=== PATIENT | female | born 2000 | race Caucasian/White ===

== ENCOUNTER 2024-09-13 18:00 | Outpatient (REF) | payer MEDICAID, SELFPAY ==
[2024-09-14 05:18] LABS: CT PCR NOT DETECTED (Not Detect.); NG PCR NOT DETECTED (Not Detect.)
== END 2024-09-13 18:01 | disposition home or self-care (01) ==
LOC: HO.HHCLNP 18:00
PROVIDERS: Visit Provider Family Medicine
DX: Z11.3 Encounter for screening for infections with a predominantly sexual mode of transmission (principal)
CPT/HCPCS: 87491; 87591

== ENCOUNTER 2024-09-24 13:32 | Outpatient (REF) | payer MEDICAID, SELFPAY ==
[2024-09-24 14:09] LABS: MANUAL DIFF FLAG NO
[2024-09-24 14:31] LABS: Basophils Absolute Auto 0.1 X10*3/uL (0.0-0.2); Basophils Percent Auto 0.7 % (0-2); Eosinophils Percent Auto 0.2 % (0-4); Hematocrit 43.4 % (37.0-47.0); Hemoglobin 15.1 g/dl (12.0-16.0); Imm Gran Abs Auto 0.02 X10*3/uL (0.00-0.03); Imm Gran Pct Auto 0.2 % (0.0-0.4); Lymphocytes Absolute Auto 1.7 X10*3/uL (1.2-4.9); Lymphocytes Percent Auto 17.4 % (20-40); Mean Corpuscular HGB Conc 34.8 g/dl (31.0-35.0); Mean Corpuscular Hemoglobin 29.7 pg (27.0-33.0); Mean Corpuscular Volume 85.3 fL (80.0-98.0); Mean Platelet Volume 11.1 fL (9.4-12.3); Monocytes Absolute Auto 0.3 X10*3/uL (0.1-1.2); Monocytes Percent Auto 2.7 % (2-11); Neutrophils Absolute Auto 7.9 x10*3/uL (2.0-8.3); Neutrophils Percent Auto 78.8 % (45-73); Platelet Count 245 X10*3/uL (160-400); Red Blood Count 5.09 X10*6/uL (4.20-5.50); Red Cell Distribution Width 12.9 % (11.0-16.0)
[2024-09-24 14:40] LABS: Cholesterol 189 mg/dL (<200); HDL Cholesterol 77 mg/dL (>40); LDL Cholesterol Calculated 102 mg/dL (<100); Triglycerides 54 mg/dL (<150)
[2024-09-25 04:15] LABS: HIV AB/AG Nonreactive (Nonreactive); HIV Num 1 0.06 S/CO (0.00-0.99); ~HepC Num1 0.06 S/CO (0.00-0.79); ~Hepatitis C Antibody Nonreactive (Nonreactive)
[2024-09-25 09:24] LABS: Rubella IgG Antibody 2.59 Index; Rubeola IgG (Measles) >300.00 AU/mL
[2024-09-25 13:03] LABS: Varicella IgG Antibody 1.02 S/CO
[2024-09-27 03:54] LABS: TS Negative Control Passed; TS Panel A 0; TS Panel B 0; TS Positive Control Passed; TSpotTB Negative (Negative)
== END 2024-09-24 13:33 | disposition home or self-care (01) ==
LOC: HO.CHCLDS 13:32
PROVIDERS: Visit Provider Family Medicine
DX: Z11.1 Encounter for screening for respiratory tuberculosis (principal); Z13.9 Encounter for screening, unspecified; Z28.39 Other underimmunization status
CPT/HCPCS: 36415; 80061; 85025; 86481; 86735; 86762; 86765; 86787; 86803; 87389

== ENCOUNTER 2024-10-17 13:35 | Outpatient (REF) | payer MEDICAID, SELFPAY ==
[2024-10-18 10:54] LABS: HPV 16,18/45 See PAP report
[2024-10-28 01:19] LABS: C. trachomatis RNA TMA Not Detected (Not Detected); N. gonorrhoeae RNA TMA Not Detected (Not Detected); Trichomonas (NAAT) Not Detected (Not Detected)
== END 2024-10-17 13:36 | disposition home or self-care (01) ==
LOC: HO.LNP 13:35
PROVIDERS: Visit Provider Family Medicine
DX: Z12.4 Encounter for screening for malignant neoplasm of cervix (principal); N87.0 Mild cervical dysplasia; R87.810 Cervical high risk human papillomavirus (HPV) DNA test positive
CPT/HCPCS: 87491; 87591; 87624; 87661; 88175

== ENCOUNTER 2024-10-17 15:57 | Outpatient (REF) | payer MEDICAID, SELFPAY | END 2024-10-17 15:58 | disposition home or self-care (01) | LOC: HO.CHCLDS 15:57 | PROVIDERS: Visit Provider Family Medicine | DX: Z00.00 Encounter for general adult medical examination without abnormal findings (principal); Z11.59 Encounter for screening for other viral diseases | CPT/HCPCS: 86317 ==

== ENCOUNTER 2025-04-02 12:18 | Outpatient (AMB) | payer MEDICAID, SELFPAY ==
--- NOTE | 2025-04-02 12:21 | A.OFFVIS_ITS ---
Vital Signs 04/02/25 12:33 Height 5 ft 2 in Weight 122 lb BMI 22.3 BP 114/72 Intake Visit Reasons: abnormal pap/ ? colpo Tank Furnace Operator: Tank Furnace Operator Present (Elisha) Accompanied by: Mother Allergies No Known Allergies Allergy (Verified 04/02/25 12:31) Is last menstrual period known: Yes Last menstrual period: 03/01/25 Post menopausal: No Patient : No HPI Comments Details: Presenting referred from PCP regarding abnormal Pap smear which showed the following: Satisfactory for evaluation, with mildly dysplastic squamous cells / HPV cytopathic change (TOVA 1; low grade squamous intraepithelial lesion). Endocervical epithelium present. 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 Female Reproductive History Menstrual Age of Menarche: 13 Duration of menses: 3-5 days Date of last menstrual period: 03/01/25 control method: none Total pregnancies: 1 Ab induced: 1 Date of last pap smear: 11/06/24 History of abnormal pap smear: Yes Review of Systems Const All systems reviewed & are unremarkable except as noted in HPI and below Reports as per HPI and Reports no additional complaints GI Reports no additional complaints Reports no additional complaints Physical Exam Vital Signs: Last Vital Signs BP 114/72 04/02/25 12:33 BMI result Body Mass Index 22.3 General: Yes no CVA tenderness External Female Exam: normal external appearance and normal appearance of the urethra Speculum Exam - Vagina: normal appearance of the vagina, normal palpation, no lesions and no masses Speculum Exam - Cervix: normal appearance of the cervix, normal palpation, no lesions, no masses and nontender Bimanual exam- vagina & uterus: normal bimanual exam, normal palpation, uterine size normal, normal palpation, uterine shape normal, No Cervical tenderness present and non-tender Bimanual Exam- Adnexa, other: normal adnexae Back/Spine/Pelvis Back: no CVA tenderness Assessment & Plan Assessment & Plan (1) LGSIL on Pap smear of cervix: Comment: HPV high-risk positive, HPV 16/18 negative In the category of 21-24 years of age Code(s): R87.612 - Low grade squamous intraepithelial lesion on cytologic smear of cervix (LGSIL) Category: Medical Plan: Discussed with the patient the result of her abnormal pap, its significance, risk of progression, persistence, and regression. the false positive/negative rate of a Pap smear as a screening test in detecting cervical cancer and the ASCCP guidelines in managing LSIL HPV positive in woman ages 21-24 years, specifically to repeat cytology in 12 months, if negative/ASCUS or LSIL, will repeat cytology in another 12 months if 2 consecutive cytologies are negative , will co back to routine screening, if not or in case of asc-H, AGC, HSIL will proceed to colposcopy. Instructions given the patient to schedule Pap smear in 12 months. All questions answered, the patient verbalized understanding Coding Level of Care Code New Pt Level 3 (41640) Diagnoses LGSIL on Pap smear of cervix R87.612
--- OUTSIDE RECORDS SUMMARY | 2025-04-02 12:32 | XMS_ITS | Clinical Summary ---
Author Organization [facility] Address [address] [place] [address] Phone Care Team Providers Care Investment Broker Name Role Phone Unavailable Primary Care Provider Unavailabl e Allergies No known active allergies Medications No known medications Active Problems Problem Noted Date Diagnosed Date Unplanned 09/16/2023 Overview (09/16/2023): 01/2023 Myopia, bilateral 02/15/2022 Overview (02/20/2022): L 20/70 R 20/40- refer to optha stressed the importance especially with driving Assessment & Plan (02/20/2022 2:36 PM EDT): L 20/70 R 20/40- refer to optha stressed the importance especially with driving 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 Multiple benign nevi 02/15/2022 Overview (02/15/2022): 02/15/22 request referral to derm; really wants nevi to L antecub removed Resolved Problems Problem Noted Date Diagnosed Date Resolved Date Acquired unequal leg length 08/03/2013 02/20/2022 Immunizations Immunization Administration Dates Next Due DTaP 5 07/21/2006, 4,2002, 002,2002 HPV Vaccine 9 Valent 08/11/2018,11/16/2016 Hep A, ped/adol 10/01/2015,08/07/2014 Hep B, ped/adol 03/28/2003,2002,2002 Hib (PRP-T) 09/19/2003, 3,2002, 002 IPV 07/21/2006, 4,03/28/2003, 002,2002 MMR 07/21/2006,07/04/2003 Meningococcal B Trumenba 10/01/2020,08/22/2019 Meningococcal Conj (Menactra) MCV4P 08/11/2018,0 08/03/2013 Pneumococcal Conjugate 09/19/2003,2002,2002, 002 Tdap 08/03/2013 Varicella 07/21/2007,07/04/2003 Family History Medical History Relation Name Comments No Known Problems Father Dakota Hypertension Maternal Grandfather No Known Problems Maternal Grandmother No Known Problems Mother Bhumi Hypertension Paternal Grandmother Relation Name Status Comments Brother Simon Alive Brother: Alive and well Father Dakota Alive Maternal Grandfather Alive Maternal Grandmother Alive Mother Bhumi Alive Other Family history of Asthma, Family history of Elevated cholesterol, Family history of Deafness, Family history of Obesity, Family history of Diabetes mellitus Paternal Grandfather Alive Paternal Grandmother Alive Sister Deanna Alive Sister: Alive a nd well Social History Tobacco Use Types Packs/Day Years Used Date Smoking Tobacco: Never Comments:Never smoker Alcohol Use Standard Drinks/Week Comments Yes 0 (1 standard drink = 0.6 oz pur e alcohol) Hunger/Food Answer Date Recorded In the last 12 months, did y ou or your family ever eat less than you felt you should because there wasn't enough money for food? No 02/15/2022 Stable Housing Answer Date Recorded Are you worried that in the next 2 months you may not have stable housing? No 02/15/2022 Transportation Concerns Answer Date Rec orded In the last 12 months, have you or your family ever had to go without healthcare because you didn't have a way to get there? No 02/15/2022 Hazards in Home Answer Date Recorded Think about the place you li ve. Do you have problems with any of the following? Pests (mice or roaches), mold, no/not working smoke detectors, water leaks, no window guards. No 2021 Financing Utilities Answer Date Recorde d In the last 12 months, has t he electric, gas, oil, or water company threatened to shut off your services in your home? No 02/15/2022 Safety at Home Answer Date Recorded Are you or your family worried about feeling saf e in your home? No 02/15/2022 Outside Support Answer Date Recorded Do you feel that you need mo re support from other people or programs to help you care for yourself or your family? No 02/15/2022 Understanding Health Concerns Answer Da te Recorded Do you need help understandi ng your or your child's healthcare needs (diagnosis, medications, plan, etc.)? No 02/15/2022 Financing Health Concerns Answer Date R ecorded In the last 12 months, was t here a time when your child needed to see a doctor or get medications or supplies but could not because of cost? No 02/15/2022 Missing School or Work Answer Date Tristian rded Did you or your child miss s chool or work because of a health problem that could have been avoided? No 02/15/2022 Comments No Sex and Gender Information Value Date Recorded Sex Assigned at Not on file Legal Sex Female 4:56 PM EDT Gender Identity Female 09/16/2023 1:13 PM EST Sexual Orientation Not on file Last Filed Vital Signs Vital Sign Reading Time Taken Comments Blood Pressure 100/72 02/15/2022 9:23 AM EDT Pulse 80 05/12/2021 2:35 PM EDT Temperature 37.2 ??C (99 ??F) 01/10/2023 9:28 AM EST Respiratory Rate - - Oxygen Saturation 100% 11/15/2022 4:45 PM EST Inhaled Oxygen Concentration - - Weight 47.2 kg (104 lb) 01/10/2023 9:28 AM EST Height 158.8 cm (5' 2.5 ) 02/15/2022 9:23 AM EDT Body Mass Index 18.72 02/15/2022 9:23 AM EDT Plan of Treatment Health Maintenance Due Date Last Done Comments DTaP,Tdap,and Td Vaccines (7 - Td or Tdap) 08/03/2023 08/03/2013, 07/21/2006, 12/26/2003, Additional history exists Influenza Vaccines (#1) 2024 COVID-19 Vaccine ( - 2023-2 5 season) 2024 Hepatitis B Vaccines Completed 03/28/2003, 2002, 2002 HIB Vaccines Completed 09/19/2003, 12/09, 2002, Additional history exists Pneumococcal Vaccine Completed 09/19/2003, 2002, 2002, Additional history exists IPV Vaccines Completed 07/21/2006, 12/08, 03/28/2003, Additional history exists MMR Vaccines Completed 07/21/2006, 07/04/2003 Varicella Vaccines Completed 07/21/2007, 07/04/2003 Hepatitis A Vaccines Completed 10/01/2015, 08/07/20 14 HPV Vaccines Completed 08/11/2018, 11/16/2016 Meningococcal Vaccine Completed 08/11/2018, 013 Men B Vaccine Completed 10/01/2020, 08/22/2019 Procedures * Due to [place] [employer] law, this organization might not be sharing sensitive test results. Procedure Name Priority Date/Time Associated Diagnosis Comments CHLAMYDIA AND GONORRHEA, AMPLIFIED Routine 02/15/2022 10:11 AM EDT Special screening examination for chlamydial disease from Last 3 Months or Most Recently Relevant to Health Maintenance Results * Due to [place] [employer] law, this organization might not be sharing sensitive test results. * Chlamydia and Gonorrhoea, Amplified (02/15/2022 10:11 AM EDT) Chlamydia Trachomatis, DNA Probe NEGATIVE (NEG) [facility] Comment: No Chlamydia Trachomatis RNA detected in this patient's sample ? (REFERENCE RANGE/NORMAL VALUE: NOT DETECTED) ? Note: This test uses electrician third- mediated amplification method to detect rRNA from C. Trachomatis URINE GC AMP PROBE NEGATIVE (NEG) [facility] Comment: No Neisseria Gonorrhoeae RNA detected in this patient's sample ? (REFERENCE RANGE/NORMAL VALUE: NOT DETECTED) ? NOTE: This test uses electrician third-mediated amplification method to detect rRNA from N.Gonorrhoeae. A negative result does not preclude infection. In the case of a negative urine result, testing of an endocervical(female) or urethral (male) specimen is recommended if there is high clinical suspicion of infection. Due to very high sensitivity of Nucleic Acid Amplification Test, false positive results may occur. Therefore, specimen handling is extremely important. In patients in whom the disease is unlikely, additional sample for testing should be considered after an initial positive result. The performance characteristics of this test have not been evaluated in children. The Aptima Combo2 assay is not intended for the evaluation of suspected sexual abuse or for other medico-legal indications. The ordering provider should assess if the patient had consensual sex without risk of sexual abuse. Consult the [facility] if needed. Contact phone number . Therapeutic failure or success cannot be determined with the Aptima Combo2 assay since nucleic acid may persist following appropriate antimicrobial therapy. The Centers for Disease Control and Prevention (CDC) recommends confirmatory retesting using culture or a different nucleic acid amplification test when positive results occur, if indicated. Testing performed or reported by [facility], a Service of [facility], [facility] [place] [address] Cornelio Hubre MD, Tattoo Identifier [facility]# [id number] Urine (Urine) 02/15/2022 10: 11 AM EDT 02/16/2022 12:42 AM EDT us Katherine Paul NP LAB MICROBIOLOGY - GENERAL ORDER PETER Final Result [facility] from Last 3 Months or Most Recently Relevant to Health Maintenance
[2025-04-02 12:33] VITALS: BP 114/72; BMI 22.3
== END 2025-04-02 13:12 | disposition home or self-care (01) ==
LOC: HO.HWS 12:19
PROVIDERS: PCP Nurse Practitioner Pediatrics; Visit Provider Obstetrics & Gynecology
DX: R87.612 Low grade squamous intraepithelial lesion on cytologic smear of cervix (LGSIL) (principal)
CPT/HCPCS: 99203

== ENCOUNTER → 2025-04-02 12:18 | Outpatient (BNVA) | payer MEDICAID, SELFPAY | PROVIDERS: PCP Nurse Practitioner Pediatrics; Visit Provider Obstetrics & Gynecology | DX: R87.612 Low grade squamous intraepithelial lesion on cytologic smear of cervix (LGSIL) (principal) | CPT/HCPCS: 99202 ==

== ENCOUNTER 2025-04-04 09:09 | Outpatient (REF) | payer MEDICAID, SELFPAY ==
--- OUTSIDE RECORDS SUMMARY | 2025-04-04 09:30 | XMS_ITS | Clinical Summary ---
Author Organization [facility] Address [address] [place] [address] Phone Care Team Providers Care Sawdust Drier Name Role Phone Unavailable Primary Care Provider [...] Completed 10/01/2020, 08/22/2019 Procedures * Due to [place] [employer] law, this organization might not be sharing sensitive test results. Procedure Name Priority Date/Time Associated Diagnosis Comments CHLAMYDIA AND GONORRHEA, AMPLIFIED Routine 02/15/2022 10:11 AM EDT Special screening examination for chlamydial disease from Last 3 Months or Most Recently Relevant to Health Maintenance Results * Due to [place] [employer] law, this organization might not be sharing sensitive test results. * Chlamydia and Gonorrhoea, Amplified (02/15/2022 10:11 AM EDT) Chlamydia Trachomatis, DNA Probe NEGATIVE (NEG) [facility] Comment: No Chlamydia Trachomatis RNA detected in this patient's sample ? (REFERENCE RANGE/NORMAL VALUE: NOT DETECTED) ? Note: This test uses aircraft engine cylinder mechanic- mediated amplification method to detect rRNA from C. Trachomatis URINE GC AMP PROBE NEGATIVE (NEG) [facility] Comment: No Neisseria Gonorrhoeae RNA detected in this patient's sample ? (REFERENCE RANGE/NORMAL VALUE: NOT DETECTED) ? NOTE: This test uses aircraft engine cylinder mechanic-mediated amplification method to detect rRNA from N.Gonorrhoeae. [...] without risk of sexual abuse. Consult the [facility] if needed. Contact phone number . Therapeutic failure or success cannot be determined with the Aptima Combo2 assay since nucleic acid may persist following appropriate antimicrobial therapy. The Centers for Disease Control and Prevention (CDC) recommends confirmatory retesting using culture or a different nucleic acid amplification test when positive results occur, if indicated. Testing performed or reported by [facility], a Service of [facility], [facility] [place] [address] Cornelio Huber MD, Car Lubricator [facility]# [id number] Urine (Urine) 02/15/2022 10: 11 AM EDT 02/16/2022 12:42 AM EDT us Katherine Paul NP LAB MICROBIOLOGY - GENERAL ORDER PETER Final Result [facility] from Last 3 Months or Most Recently Relevant to Health Maintenance
[2025-04-04 11:25] LABS: HBS Num1 0.05 mIU/mL (0-7.99); HBc Num1 0.07 S/CO (0.00-0.79); HBsAGNum1 0.26 S/CO (0.00-0.99); Hepatitis B Core Antibody Nonreactive (Nonreactive); Hepatitis B Surface Antigen Negative (Negative); ~Hepatitis B Surface Antibody NONREACTIVE (Nonreactive)
== END 2025-04-04 09:10 | disposition home or self-care (01) ==
LOC: HO.CHCLDS 09:09
PROVIDERS: Visit Provider Family Medicine
DX: Z78.9 Other specified health status (principal)
CPT/HCPCS: 36415; 86704; 86706; 87340

== ENCOUNTER 2025-10-25 11:35 | Outpatient (REF) | payer MEDICAID, SELFPAY ==
--- OUTSIDE RECORDS SUMMARY | 2025-10-25 13:43 | XMS_ITS | Encounter Summary ---
Author Organization [employer] Address [address] [facility] [address] [place] [address] Care Team Providers Care Agricultural Equipment Test Engineer Name Role Phone Bhumi Gamboa MD Primary Care Provider [phone] Encounter Details Date Type Department Care Team ([facility] st Contact Info) Description 12/26/2024 Orders Only [facility] [address] [place] [address] Provider, MD Ashly Social History Tobacco Use Types Packs/Day Years Used Date Smoking Tobacco: Never Passive Smoke Exposure: Current Smokeless Tobacco: Never Alcohol Use Standard Drinks/Week Comments Yes 0 (1 standard drink = 0.6 oz pur e alcohol) Social, irregular Depression Answer Date Recorded Patient Health Questionnaire-9 Score 0 09/20/2024 Patient Health Questionnaire-9 Score 0 09/20/2024 Last PHQ-9: Questionnaire Data Not on file 1 11/20/2023 Housing Stability Answer Date Recorded What is your housing situation today? I have josue torres 09/06/[address] you li ve. Do you have problems with any of the following? None of the above 09/06/2024 Food Insecurity Answer Date Recorded Within the past 12 months, y ou worried that your food would run out before you got money to buy more: Never True 09/06/2024 Within the past 12 months,th e food you bought just didn't last and you didn't have enough money to get more: Never True Transportation Answer Date Recorded In the past 12 months, has l ack of transportation kept you from medical appts, meetings, work or from getting things needed for daily living? No 09/06/2024 Utilities Answer Date Recorded In the past 12 months, has t he [employer], gas, oil or water company threatened to shut off services in your home? No 09/06/2024 Depression Answer Date Recorded Patient Health Questionnaire-2 Score 0 09/20/2024 Internet Access Answer Date Recorded Internet Access Q1 Yes 09/06/2024 Internet Access Q2 Not on file 09/06/2024 Comments No Sex and Gender Information Value Date Recorded Sex Assigned at Female 06/08/2024 10:56 AM EDT Legal Sex Female 10:53 AM EDT Gender Identity Female 06/08/2024 10:56 AM EDT Sexual Orientation Straight 09/11/2024 11 :44 AM EST documented as of this encounter Plan of Treatment Not on file documented as of this encounter Procedures Procedure Name Priority Date/Time Associated Diagnosis Comments DERMATOPATHOLOGY REPORT Routine 12/24/19 11:18 AM EST documented in this encounter Results * Dermatopathology Report (12/24/2024 11:18 AM EST) us Historical Provider LAB BLOOD ORDERABLES Ginger l Result documented in this encounter Visit Diagnoses Not on filedocumented in this encounter Additional Health Concerns Assessment Noted Time PHQ-9 Depression Total Score: 0 09/20/20 3:38 PM EST documented as of this encounter Care Teams Agricultural Equipment Test Engineer Relationship Specialty Start Date End Date Bhumi Gamboa MD [address] [place] [address] PCP - General Family Medicine 09/13/24 documented as of this encounter
--- OUTSIDE RECORDS SUMMARY | 2025-10-25 13:43 | XMS_ITS | Encounter Summary ---
Author Organization [facility] Address [address] [place] [phone] Phone Care Team Providers Care Co Founder And Chairman Name Role Phone Maggie Smith MD Primary Care Provider Encounter Details Date Type Department Care Team ([facility] Contact Info) Description 06/23/2017 Conversion Encounter [facility] [address] [place] [address] Social History Tobacco Use Types Packs/Day Years Used Date Smoking Tobacco: Never Comments:Never smoker Comments Unknown Sex and Gender Information Value Date Recorded Sex Assigned at Not on file Legal Sex Female 4:56 PM EDT Gender Identity Female 09/16/2023 1:13 PM EST Sexual Orientation Not on file documented as of this encounter Plan of Treatment Not on file documented as of this encounter Visit Diagnoses Not on filedocumented in this encounter Care Teams Co Founder And Chairman Relationship Specialty Start Date End Date Maggie Smith MD [address] [place] [address] PCP - General Pediatrics 04/28/23 10/19/23 documented as of this encounter
--- OUTSIDE RECORDS SUMMARY | 2025-10-25 13:43 | XMS_ITS | Encounter Summary ---
Author Organization [facility] Address [address] [place] [address] Phone Care Team Providers Care Health And Safety Inspector Name Role Phone Maggie Smith MD Primary Care Provider Encounter Details Date Type Department Care Team (Late st Contact Info) Description 06/18/2010 Documentation [facility] [place] Family Medicine [address] [place] [address] Family Medicine, Physician [address] [place], [place] [id number] Social History Tobacco Use Types Packs/Day Years Used Date Smoking Tobacco: Never Assessed Comments Unknown Sex and Gender Information Value Date Recorded Sex Assigned at Not on file Legal Sex Female 4:56 PM EDT Gender Identity Female 09/16/2023 1:13 PM EST Sexual Orientation Not on file documented as of this encounter Plan of Treatment Not on file documented as of this encounter Visit Diagnoses Not on filedocumented in this encounter Care Teams Health And Safety Inspector Relationship Specialty Start Date End Date Maggie Smith MD [address] [place] [id number] PCP - General Pediatrics 04/28/23 10/19/23 documented as of this encounter
--- OUTSIDE RECORDS SUMMARY | 2025-10-25 13:43 | XMS_ITS | Encounter Summary ---
Author Organization [facility] Address [address] [place] [address] Phone Care Team Providers Care Body Mechanic Apprentice Name Role Phone Maggie Smith MD Primary Care Provider [phone] Encounter Details Date Type Department Care Team (Late st Contact Info) Description 07/11/2014 Documentation [facility] [place] [address] [place] [address] Family Medicine, Physician [address] [place], [place] [id number] Social History Tobacco Use Types Packs/Day Years [...] on filedocumented in this encounter Care Teams Body Mechanic Apprentice Relationship Specialty Start Date End Date Maggie Smith MD [address] [place] [address] PCP - General Pediatrics 04/28/23 10/19/23 documented as of this encounter
--- OUTSIDE RECORDS SUMMARY | 2025-10-25 13:43 | XMS_ITS | Encounter Summary ---
Author Organization [employer] Address [address] [facility] [address] [place] [address] Care Team Providers Care Chair Springer Name Role Phone Bhumi Gamboa MD Primary Care Provider [phone] Reason for Visit * Reason Onset Date Comments Call Back Request 10/22/2025 Encounter Details Date Type Department Care Team ([facility] Contact Info) Description 10/22/2025 Telephone [facility] MEDICINE [address] [place] [address] Bhumi Gamboa MD [address] [place] [address] Call Back Request Social History Tobacco Use Types Packs/Day Years [...] the past 12 months, has t he electric, gas, oil or water company threatened to [...] AM EST documented as of this encounter Miscellaneous Notes * Telephone Encounter - Tressa Goetz RN - 10/22/2025 1:25 PM EST TC to pt. No answer. VM left informing pt of fasting labs and advised to contact office if additional questions. * Telephone Encounter - Macrina Hickey - 10/22/2025 12:48 PM EST Tc from pt requesting call back if she have fasting before she do lab work . Please contact at [phone] documented in this encounter Plan of Treatment Not on file documented as of this encounter Visit Diagnoses Not on filedocumented in this encounter Additional Health Concerns Assessment Noted Time PHQ-9 Depression Total Score: 0 09/20/20 3:38 PM EST documented as of this encounter Care Teams Chair Springer Relationship Specialty Start Date End Date Bhumi Gamboa MD [address] [place] [address] PCP - General Family Medicine 09/13/24 documented as of this encounter
--- OUTSIDE RECORDS SUMMARY | 2025-10-25 13:43 | XMS_ITS | Clinical Summary ---
Author Organization [facility] Address [address] [place] [phone] Phone Care Team Providers Care Air Analyst Name Role Phone Unavailable Primary Care Provider [...] 80 05/12/2021 2:35 PM EDT Temperature 37.2 C (99 F) 01/10/2023 9:28 AM EST Respiratory Rate - [...] 12/26/2003, Additional history exists Influenza Vaccines (#1) 2025 COVID-19 Vaccine (1 - 2024-2 6 season) 2025 Hepatitis B Vaccines Completed 03/28/2003, 2002, 2002 [...] Completed 10/01/2020, 08/22/2019 Procedures * Due to [place] law, this organization might not be sharing sensitive test results. Procedure Name Priority Date/Time Associated Diagnosis Comments CHLAMYDIA AND GONORRHEA, AMPLIFIED Routine 02/15/2022 10:11 AM EDT Special screening examination for chlamydial disease from Last 3 Months or Most Recently Relevant to Health Maintenance Results * Due to [place] law, this organization might not be sharing sensitive test results. * Chlamydia and Gonorrhoea, Amplified (02/15/2022 10:11 AM EDT) Chlamydia Trachomatis, DNA Probe NEGATIVE (NEG) [facility] Comment: No Chlamydia Trachomatis RNA detected in this patient's sample (REFERENCE RANGE/NORMAL VALUE: NOT DETECTED) Note: This test uses investigative assistant- mediated amplification method to detect rRNA from C. Trachomatis URINE GC AMP PROBE NEGATIVE (NEG) [facility] Comment: No Neisseria Gonorrhoeae RNA detected in this patient's sample (REFERENCE RANGE/NORMAL VALUE: NOT DETECTED) NOTE: This test uses investigative assistant-mediated amplification method to detect rRNA from N.Gonorrhoeae. [...] without risk of sexual abuse. Consult the [facility] if needed. Contact phone number . Therapeutic failure or success cannot be determined with the Aptima Combo2 assay since nucleic acid may persist following appropriate antimicrobial therapy. The Centers for Disease Control and Prevention (CDC) recommends confirmatory retesting using culture or a different nucleic acid amplification test when positive results occur, if indicated. Testing performed or reported by [facility], a Service of [facility], [address] [place] [address] Cornelio Huber MD, Medical Office Manager [facility]# [id number] Urine (Urine) 02/15/2022 10: 11 AM EDT 02/16/2022 12:42 AM EDT us Katherine Paul NP LAB MICROBIOLOGY - GENERAL ORDER PETER Final Result [facility] from Last 3 Months or Most Recently Relevant to Health Maintenance
--- OUTSIDE RECORDS SUMMARY | 2025-10-25 13:43 | XMS_ITS | Clinical Summary ---
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 90 capsule 3 10/09/20 25 Active ergocalciferol (Vitamin D2) 1.25 MG (58010 UT) capsuleIndicat ions:Vitamin D deficiency Take 1 capsule (1.25 mg) by mouth 1 (one) time per week. 12 capsule 10/09/20 25 Active ergocalciferol (Vitamin D2) 1.25 MG (05908 UT) capsule Take 1 capsule (1.25 mg) by mouth 1 (one) time per week. 8 capsule 10/08/20 25 025 Discontinued(Re order (will not trigger notification to Pharmacy)) cholecalcifero l (Vitamin D-3) 50 MCG (2000 UT) capsule Take 1 capsule (50 mcg) by mouth Once per day. 120 capsule 3 10/08/20 25 025 Discontinued(Re order (will not trigger notification to Pharmacy)) Active Problems Problem Noted Date Diagnosed Date Vitamin D deficiency 10/08/2025 Assessment & Plan (10/08/2025 11:27 AM EST): Will send supplementation and repeat testing in 3 months. Hyperbilirubinemia 10/08/2025 Assessment & Plan (10/08/2025 11:28 AM EST): Unknown etiology, as reviewing of the labs is asynchronous, will recheck and followup with patient. Cervical cancer screening 10/17/2024 Assessment & Plan (10/17/2024 3:48 PM EST): 24 y.o. here for cervical cancer screening. Will continue monitoring following ASCCP guidelines. Annual physical exam 09/13/2024 Assessment & Plan (10/02/2024 10:10 PM EST): 24 y.o. female here for annual physical examination Reviewed BMI and BP with patient. Nutritional recommendations: Recommended to decrease soda and sugary beverage consumption. Recommended at least 20 g per meal of protein to assist with satiety. Exercise recommendations: Recommended at least 150 min/week of moderate intensity exercise. BH screen done and reviewed Care Gaps reviewed IZ reviewed and discussed w/ patient Updated/reviewed PMH, Surghx, Family Hx & Social Hx Hepatitis B Antibody, Quant Assessment & Plan (09/14/2024 11:58 PM EST): CBC auto differential Lipid Panel, Standard Chlamydia/N. Gonorrhoeae RNA, TMA, Urogenitial Hepatitis C Antibody with Reflex to HCV, RNA, Quantitative, Real-Time PCR HIV-1/2 Antigen and Antibodies, Fourth Generation, with Reflexes Tuberculosis screening 09/13/2024 Assessment & Plan (09/14/2024 11:53 PM EST): T-SPOT .TB Delinquent immunization status 09/13/2024 Assessment & Plan (09/14/2024 11:55 PM EST): Varicella Zoster Antibody, IgG Measles, Mumps, and Rubella (MMR) Antibodies (IgG) Panel, Immune Status Multiple benign nevi 02/15/2022 Overview (09/11/2024): 02/15/22 request referral to derm; really wants nevi to L antecub removed Assessment & Plan (09/14/2024 11:56 PM EST): Referral to [facility] Derm Skin 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 Resolved Problems Problem Noted Date Diagnosed Date Resolved Date Myopia, bilateral 02/15/2022 01/16/2025 Overview (09/11/2024): L R 2040- refer to optha stressed the importance especially with driving Last Assessment & Plan: L R 2040- refer to optha stressed the importance especially with driving Assessment & Plan (09/21/2024 1:25 AM EST): Referral to [facility] Encounters Date Type Department Care Team Description 10/22/2025 Telephone [facility] [address] [place] [phone] Bhumi Gamboa MD Call Back Request 10/09/[address] [address] Bhumi Gamboa MD Medication Question 10/08/2025 11:20 AM EST Telemedicine [facility] [address] [place] [address] Bhumi Gamboa MD Vitamin D deficiency (Primary Dx); Hyperbilirubinemia 10/08/2025 Travel 10/07/2025 Telephone [facility] [address] [place] [address] Bhumi Gamboa MD Medication Question 09/12/2025 Telephone [facility] [address] [place] [phone] Bhumi Gamboa MD Nurse Triage from Last 3 Months Immunizations Immunization Administration Dates Next Due DTaP, 5 pertussis antigens 07/21/2006,,2002,10/25,2002 HPV 9-Valent 08/11/2018,11/16/2016 Hep A, ped/adol, 2 dose 10/01/2015,08/07/2014 Hep B, Adolescent or Pediatric 03/28/2003,2002,2002 Hep B, adult 07/25/2025,05/14/2025,04/05/2025 Hib (PRP-T) 09/19/2003, 3,2002,08/31 IPV 07/21/2006, 4,03/28/2003,10/25,2002 Influenza, Injectable, MDCK, preservative free 02/16/2025 MMR 07/21/2006,07/04/2003 Meningococcal B, Recombinant 10/01/2020,08/22/20 19 Meningococcal MCV4P ACYW-135 08/11/2018,08/03/20 13 Pneumococcal Conjugate PCV 7 09/19/2003, 2002,2002,08/31 Tdap 09/13/2024,08/03/2013 Varicella 07/21/2007,07/04/2003 Family History Medical History Relation Name Comments Sleep apnea Mother Relation Name Status Comments Mother Social History Tobacco Use Types Packs/Day Years Used Date Smoking Tobacco: Never Passive Smoke Exposure: Current Smokeless Tobacco: Never Tobacco Cessation:Counseling Given: Not Answered Alcohol Use Standard Drinks/Week Comments Yes 0 (1 standard drink = 0.6 oz pur e alcohol) Social, irregular Depression Answer Date Recorded Patient Health Questionnaire-9 Score 0 09/20/2024 Patient Health Questionnaire-9 Score 0 09/20/2024 Last PHQ-9: Questionnaire Data Not on file 1 11/20/2023 Housing Stability Answer Date Recorded What is your housing situation today? I have [facility] 09/06/[address] you [...] Orientation Straight 09/11/2024 11 :44 AM EST Last Filed Vital Signs Vital Sign Reading Time Taken Comments Blood Pressure 132/80 12/14/2024 8:52 AM EST Pulse 80 12/14/2024 8:52 AM EST Temperature 37.1 C (98.7 F) 12/14/2024 8:52 AM EST Respiratory Rate 16 12/14/2024 8:52 AM EST Oxygen Saturation 98% 10/17/2024 3:10 PM EST Inhaled Oxygen Concentration - - Weight 56.5 kg (124 lb 9.6 oz) 12/14/2024 8:52 A M EST Height 160 cm (5' 3 ) 12/14/2024 8:52 AM EST Body Mass Index 22.07 12/14/2024 8:52 AM EST Plan of Treatment Health Maintenance Due Date Last Done Comments Alcohol/Substance Use Screening 2014 Family Planning (PISQ) 2017 COVID-19 Vaccine ( season) 2025 Influenza Vaccine (#1) 2025 02/16/2025 SDOH Screening 09/06/2025 09/06/2024 Depression Screening 09/20/2025 09/20/2024, 09/20/20 24 Chlamydia and Gonorrhea Screening 10/17/2025 10/17/2024, 10/17/2024, 10/17/2024, Additional history exists Pap Smear 10/17/2025 10/17/2024 Disability Screening 07/24/2026 07/24/2025 Tobacco Screening 10/08/2026 10/08/2025 DTaP/Tdap/Td Vaccines (8 - Td or Tdap) 09/13/2034 09/13/2024, 08/03/2013, 07/21/2006, Additional history exists Zoster Vaccines (1 of 2) 2052 RSV Patients and Patients Aged 60 years or older (1 - 1-dose 75+ series) 2077 HIB Vaccines Completed 09/19/2003, 12/09, 2002, Additional history exists Pneumococcal Vaccine: Pediatrics (0 to 5 Years) and At-Risk Patients (6 to 49) Years Aged Out 09/19/2003, 2002, 2002, Additional history exists No longer eligible based on patient's age to complete this topic IPV Vaccines Completed 07/21/2006, 12/08, 03/28/2003, Additional history exists Hepatitis A Vaccines Completed 10/01/2015, 08/07/20 14 HPV Vaccines Completed 08/11/2018, 11/16/2016 Meningococcal Vaccine Completed 08/11/2018, 013 Meningococcal B Vaccine Completed 10/01/2020, 08/22 HIV Screening Completed 09/24/2024 Hepatitis C Screening Completed 09/24/2024 Hepatitis B Vaccines Completed 07/25/2025, 05/14/2025, 04/05/2025, Additional history exists RSV under 20 months Aged Out No longe r eligible based on patient's age to complete this topic Rotavirus Vaccines Aged Out No longer eligible based on patient's age to complete this topic Procedures Procedure Name Priority Date/Time Associated Diagnosis Comments PAP SMEAR Routine 10/17/2024 1:35 PM EST Cervical cancer screening CHLAMYDIA/N. GONORRHOEAE AND T. VAGINALIS RNA, QUAL,TMA Routine 10/17/2024 1:35 PM EST Cervical cancer screening HEPATITIS C AB W/REFL TO HCV RNA, QN, PCR Routine 09/24/2024 1:35 PM EST Encounter for health-related screening HIV 1/2 ANTIGEN/ANTIBODY, FOURTH GENERATION W/RFL Routine 09/24/2024 1:35 PM EST Encounter for health-related screening from Last 3 Months or Most Recently Relevant to Health Maintenance Results * STI testing add on (NG, CT, Trich) (10/17/2024 1:35 PM EST) Trichomonas (NAAT) Not Detected Not Detected [facility] Comment:Methodology: Transcr iption Mediated Amplification(TMA)The analytical performance characteristics of thisassay have been determined by [place]. The modificationshave not been cleared or approved by the FDA. Thisassay has been validated pursuant to the CLIAregulations and is used for clinical purposes.For additional information, please refer tohttp://education.[employer]/faq/Trichomonastma (This link is being providedfor information/educational purposes only).THIS TEST WAS PERFORMED AT:[employer] [employer] [address] [phone] OTERO MD,PHD CTNG Ref Lab Not Detected Not Detected [facility] NG Ref Lab Not Detected Not Detected [facility] Comment:Methodology: Transcr iption Mediated Amplification(TMA) to detect RNA.The analytical performance characteristics of thisassay, when used to test SurePath specimens havebeen determined by [facility]. The modificationshave not been cleared or approved by the FDA.This assay has been validated pursuant to the CLIAregulations and is used for clinical purposes.For additional information, please refer tohttps://education.[employer]/faq/KKK034(This link is being provided for information/educational purposes only).THIS TEST WAS PERFORMED AT:[employer] [id number] [place] [phone] OTERO MD,PHD ThinPrep vial Cervix uteri structure / Unknown 10/17/2024 1:35 PM EST 10/18/2024 9:00 AM EST us Bhumi Gamboa MD LAB CYTOLOGY ORDERABLES Final Result [facility] [address] [place] [phone] * Pap Smear (10/17/2024 1:35 PM EST) Swab Cervix uteri structure / Unknown 10/17/2024 1:35 PM EST 10/18/2024 9:00 AM EST [facility] - 10/24/2024 11:14 AM EST ----- ------- Name: Micheline Hodges Age/Sex: 24/ : 2000 Unit#: [id number] Attend Dr: Bhumi Gamboa MD Re10/17/24 Status: [facility] REF Location: [facility] Disch: ----- ------- SPEC : [id number] RECD: 10/18/24 STATUS: JESSEE ROSS NUM: [id number] JOSE RAFAEL: 10/17/[address] [facility] [address]: Bhumi Gamboa MD ENTERED: 10/18/24 SP TYPE: Pap Smr [facility] DR: ORDERED: Pap Smear, PAP path review Interpretation ABNORMAL PAP TEST. Satisfactory for evaluation, with mildly dysplastic squamous cells / HPV cytopathic change (TOVA 1; low grade squamous intraepithelial lesion). Endocervical epithelium present. HPV High Risk: Positive HPV Genotyping 16: Negative HPV Genotyping 18: Negative Clinical Information LMP: Unknown date Previous PAP test:Unknown date/findings Material Received ThinPrep-Cervical ----- ------- Signed (signature on file) Jasbir Ford MD 10/24/24 1114 ----- ------- END OF REPORT Bhumi Gamboa MD LAB CYTOLOGY ORDERABLES Final Result Performing Organization Address [facility] de Phone Number [facility] [address] [place] [phone] * Hepatitis C Antibody with Reflex to HCV, RNA, Quantitative, Real-Time PCR (09/24/2024 1:35 PM EST) [facility] Hepatitis C Antibody Nonreactive Nonreactive [facility] Comment:Antibodies to HCV no t detected; does not exclude early acuteHCV infection. Blood Venous blood specimen / Unknown 09/24/2024 1:35 PM EST 09/24/2024 2:04 PM EST Bhumi Gamboa MD LAB BLOOD ORDERABLES Final Re sult Performing Organization Address [facility] Co de Phone Number [facility] [address] [place] [phone] * HIV-1/2 Antigen and Antibodies, Fourth Generation, with Reflexes (09/24/2024 1:35 PM EST) Pathologist [facility] HIV AB/AG Nonreactive Nonreactive [facility] Comment:HIV-1 p24 Ag and/or HIV-1/HIV-2 Ab not detected.A test result that is nonreactive does not exclude thepossibility of exposure to or infection with HIV-1 and/orHIV-2. Nonreactive results in this assay for individualswith prior exposure to HIV-1 and/or HIV-2 may be due toantigen and antibody levels that are below the limit ofdetection of this assay.The [employer] HIV Ag/Ab Combo assay result andsupplemental assay results should be interpreted inconjunction with the patient's clinical presentation,history and other laboratory results. If the results areinconsistent with clinical evidence, additional testing issuggested to confirm the result. Blood Venous blood specimen / Unknown 09/24/2024 1:35 PM EST 09/24/2024 2:04 PM EST us Bhumi Gamboa MD LAB BLOOD ORDERABLES Final Re sult [facility] [address] [place] [phone] from Last 3 Months or Most Recently Relevant to Health Maintenance Insurance [address] [place], [place] [email or web address] C[employer] Care Teams Sheet Metal Mechanic Relationship Specialty Start Date End Date Bhumi Gamboa MD [address] [place] [phone] PCP - General Family Medicine 09/13/24
--- OUTSIDE RECORDS SUMMARY | 2025-10-25 13:43 | XMS_ITS | Data Portability ---
Author Organization [facility] [address] Address [address] [place] [address] Assessment No assessment recorded. Plan of Treatment Reminders Order Date Submit Date Provider Last Modified By Organization Details Last Modified Time Details Appointments None recorded. Lab None recorded. Referral None recorded. Procedures None recorded. Surgeries None recorded. Imaging None recorded. Medication Orders Augmentin 875 mg-125 mg tablet 2022 023 [id number], [address] [place], [address], 3 17:56:17 Patient TargetsNo targets recorded. Patient InstructionsNo instructions recorded. Reason for Referral None Reported. Problems No Known Problems Medical Equipment None Reported. Allergies No known drug allergies Medications Name Sig Start Date Stop Date Status Note LastModified by Organization Details LastModified Time Augmentin 875 mg-125 mg tablet Take 1 tablet every 12 hours by oral route as directed for 7 days. 023 active Not Available Not Available Not Avai lable Vitals Date Recorded Body height Body mass index (BMI) Body mass index (BMI) [Percentile] Per age and sex Body weight Pain severity - 0-10 verbal numeric rating [Score] - Reported Respiratory rate Oxygen saturation Heart rate Body temperature Systolic And Diastolic Provider Name and Address Organization Details Last Updated DateTime 3 157.48 cm 19.2 kg/m2 17 % 60777.2 g 5 19 /min 100 % 95 /min 98.5 [degF] 129/72 mm[Hg] [facility] 3 17:40:49 Social History Question Answer Notes LastModified by Organizat ion Details LastModified Time Tobacco Smoking Status Never Smoker ALBER SHELDON null, [place] - [facility] 06/27/2023 17:39:27 Have You Recently Traveled Abroad? No Information not available 06/27/2023 Are You Currently In School? No Information not available 06/27/2023 Sex: Unknown Functional Status Question Answer Note LastModified by Organizat ion Details LastModified Time Do you use any illicit or recreational drugs? Yes Information not available 06/27/2023 What is your level of alcohol consumption? None Information not available 06/27/2023 Are you currently employed? Yes Information not available 06/27/2023 Mental Status None recorded. Family History Relationship Description Onset Age of this Age Resolved Age Notes LastModified by Organization Details LastModified Time Unspecified Relation Diabetes mellitus [email or web address] Not available 06/27 17:39:04 Unspecified Relation Hypertensive disorder [email or web address] Not available 06/27 17:39:10 Medical History No medical history recorded. Gynecological History Statement/Question Response Date of LMP 06/27/2023 Is there any chance of ? No Obstetrics History GPAL:G 0 P 0 0 0 0 Past Encounters Encounter ID Performer Location Encounter Start Date Encounter Closed Date Diagnosis/Indication Diagnosis SNOMED-CT Code Diagnosis ICD10 Code Diagnosis IMO Codes Diagnosis Note [id number] [place] [address] [facility] [address] [place] [address] 06/27/2023 17:24:30 06/27/2023 17:57:22 Acute left otitis media 489287749 H66.92 Based on your Presentati on, Exam, and Lab Testing you are being diagnosed with otitis media I am going to prescribe you and antibiotic to cover this infection. Please be sure to complete the full course of this antibiotic to prevent antibiotic resistance . It is also important to complete this antibiotic because this infection is what causes Scarlet Fever/Rheu matic Heart Disease. Antibiotic s will typically take 4-5 days to start to work with symptom improvemen t. The following are my other recommenda tions to help with symptoms and is important for this diagnosis: 1. Take Ibuprofen or Tylenol if you do not have any allergies to these medication s. If you take a blood thinner you should not take NSAIDS like Ibuprofen. These medication will help with the inflammati on in your respirator y tract which should help the cough. (I would alternate between Tylenol 650 mg and your Ibuprofen 600 mg every 4 hours)2. Do not take any Cold Medication s that have a Decongesta nt in it - this will dry out your throat and make the sore throat worse.3. Drinking Hot Tea with honey can help coat and soothe your throat. I would be seen again if you develop any of the following symptoms.1 . Fever > 101.02. Stiff neck - where you can't turn your neck3. Trouble swallowing your saliva - drooling4. Swelling of a lymph node in your throat that is painful to touch5. Difficulty breathing6 . Severe Headache Thank you for using [facility] today, please feel free to contact our office if you have any questions or concerns. Health Concerns Section Related Observation LastModified by Organization Detai ls LastModified Time None Recorded Concern Status LastModified by Organization Details LastModified Time None Recorded Advance Directives Directive None Recorded Payers Insurance Date Sequence Insurance Name Policy Number Policy Peterson Covered Member ID Peterson Member ID Guarantor Name 06/27/2023 PROMPT PAY Bria Hodges Notes Date Note Type Note Provider Name and Address Organization Details Recorded Time 06/27/2023 text/html Skin Redness UCReported by Patient Ear problem UCReported by PatientHPIFor quality, patient reportspainandswelling . For severity, patient reportsmoderate. For associated symptoms, patient reportstender to touch. For source of patient information, patient reportsinformation obtained from patientandpatient arrived at urgent care ambulatory(mother preent as well). For location, patient reportsleft. For duration, patient reportsstarted ___and1 days. For context, patient reportsno sick contacts. AbscessReported by Patient Keri Argueta NP [address] [place], [address], [place] - [facility] 06/27/2023 18:29:20 OBGyn Episode No OBEpisode recorded.
[2025-10-25 15:40] LABS: Alanine Aminotransferase 22 U/L (0-31); Albumin Level 4.8 g/dL (3.5-5.0); Alkaline Phosphatase 63 U/L (39-117); Anion Gap 11 (12-20); Aspartate Amino Transferase 23 U/L (5-31); Blood Urea Nitrogen 8 mg/dL (9-16); Calcium 9.2 mg/dL (8.4-10.2); Carbon Dioxide 22 mmol/L (22-29); Chloride 110 mmol/L (96-108); Estimated Glomerular Filt Rate > 60; Magnesium 1.9 mg/dL (1.6-2.6); Potassium 3.4 mmol/L (3.3-5.1); Sodium 140 mmol/L (135-145); Total Protein 6.9 g/dL (6.5-8.0)
== END 2025-10-25 11:36 | disposition home or self-care (01) ==
LOC: HO.CHCLDS 11:35
PROVIDERS: Visit Provider Family Medicine
DX: E80.6 Other disorders of bilirubin metabolism (principal)
CPT/HCPCS: 36415; 80053; 83735